=== PATIENT | male | born 1995 | race Two or more races ===

== ENCOUNTER 2018-04-08 09:45 | Emergency (ER) | payer MEDICAID ==
[~2018-04-08] VITALS: Ht 170.2 cm; Wt 60.0 kg
[2018-04-08] MEDS ORDERED: KETOROLAC 60MG/2ML VIAL IM NR (11:22)
[2018-04-08] MEDS ORDERED: HYDROCODONE/ACETAMINOPHEN 5/325MG TABLET PO STA (13:21)
[2018-04-08 14:43] VITALS: BP 127/69
== END 2018-04-08 14:34 | disposition home or self-care (01) ==
LOC: ER 09:45
DX: M54.5 Low back pain (principal)
CPT/HCPCS: 72100; 96372; 99283; J1885